=== PATIENT | female | born 1975 | race African-American/Black ===

== ENCOUNTER 2020-07-08 03:27 | Emergency (ER) | payer MEDICARE, SELFPAY ==
[2020-07-08 03:32] VITALS: BP 140/91; PULSE 95; RESP 17; TEMP 36.2; O2SAT 100
[2020-07-08] MEDS: metroNIDAZOLE 250 MG TABLET 2000 MG PO (05:10)
[2020-07-08] MEDS: AZITHROMYCIN 250 MG TABLET 1000 MG PO (05:10)
[2020-07-08] MEDS: cefTRIAXone 250 MG VIAL IM (05:15)
[2020-07-08] MEDS: LIDOCAINE HCL 1% LOCAL INJ 20 ML VIAL (05:15)
--- NOTE | 2020-07-08 05:34 | ED.FEMALEGU ---
HPI - Female Genitourinary General Chief complaint: Urogenital-Female Stated complaint: STI check Time Seen by Provider: 07/08/20 04:17 History of Present Illness HPI Narrative: Patient is a 45-year-old female who presents the ER with concerns for sexually transmitted infection. Her partner told her that he tested positive for chlamydia. She last saw up with him 2 days ago. She began having vaginal discharge 1 week ago after having sex with him at that time as well. She has no pelvic pain no fevers or chills or sweats. No vaginal bleeding. She also reports she has some discomfort in her rectum and is concerned there may be a rash. She cannot see down there. Related Data Allergies Allergy/AdvReac Type Severity Reaction Status Date / Time No Known Allergies Allergy Verified 07/08/20 03:35 Review of Systems Gastrointestinal: Gastrointestinal: Denies abdominal pain, Denies nausea and Denies vomiting Genitourinary: Genitourinary: Denies abnormal vaginal bleeding, Denies nocturia, Denies genital lesions, Denies dysuria, Denies pelvic pain and Reports vaginal discharge PMFSH Past Medical History Medical History (Updated 07/08/20 @ 05:41 by Eliezer Boss MD) Asthma Diabetes History of hypertension Surgical History Surgical History (Updated 07/08/20 @ 05:39 by Eliezer Boss MD) History of section History of tubal ligation Hx of tonsillectomy Exam Narrative: Exam Narrative: GENERAL: Well-appearing, well-nourished, and in no acute distress. HEAD: Normocephalic, atraumatic. CHEST: Clear to auscultation. No respiratory distress. HEART: Regular rate and rhythm. Normal peripheral pulses. :. Normal external genitalia. No rash. There is a slight tear of the perineum between the rectum and vagina does not bleeding. Mild amount of white vaginal discharge with normal-appearing cervix without CMT. EXTREMITIES: Normal range of motion. No edema. NEURO: Alert and oriented x3. Course Course Emergency Course: Patient received ceftriaxone/azithromycin/Flagyl. Discharge home. Vital Signs Vital signs: Vital Signs Temperature 97.1 F L 07/08/20 03:32 Pulse Rate 95 07/08/20 03:32 Respiratory Rate 17 07/08/20 03:32 Blood Pressure 140/91 H 07/08/20 03:32 Pulse Oximetry 100 07/08/20 03:32 Temperature 97.1 F L 07/08/20 03:32 Pulse Rate 95 07/08/20 03:32 Respiratory Rate 17 07/08/20 03:32 Blood Pressure 140/91 H 07/08/20 03:32 Pulse Oximetry 100 07/08/20 03:32 MDM - Female Genitourinary Lab Data Labs: Lab Results 07/08/20 07/08/20 Range/Units 05:06 05:06 C.trachomatis RNA (TMA) Pending N.gonorrhoeae RNA (TMA) Pending Trichomonas Direct ID Negative (Negative) Discharge Plan Discharge Clinical Impression: Exposure to STD Patient Disposition: Home, Self-Care Condition: Stable Instructions: Sexually Transmitted Diseases (ED) Additional Instructions: Return the ER if you have fever over 100.4 ?F, cannot keep down food or water, you have additional concerns. Follow-up/Referrals: Markell,Kirsten Javed MD [Primary Care Provider] - 1 Week
== END 2020-07-08 05:46 | disposition home or self-care (01) ==
PROVIDERS: Emergency Provider Emergency Medicine; PCP Obstetrics & Gynecology
DX: Z20.2 Contact with and (suspected) exposure to infections with a predominantly sexual mode of transmission (principal); J45.909 Unspecified asthma, uncomplicated; E11.9 Type 2 diabetes mellitus without complications; I10 Essential (primary) hypertension
CPT/HCPCS: 87070; 87491; 87591; 87808; 96372; 99284; A9270; J0696